=== PATIENT | female | born 1980 | race African-American/Black ===

== ENCOUNTER 2020-03-27 03:22 | Emergency (ER) | payer OTHER ==
[~2020-03-27] VITALS: Ht 160 cm; Wt 81.8 kg
[2020-03-27 03:45] VITALS: BP 144/92; TEMP 97.6
[2020-03-27] MEDS ORDERED: NORCO 325 MG-51 TAB PO (05:21)
[2020-03-27] MEDS ORDERED: FLEXERIL 1010 MG/TAB PO (05:21)
[2020-03-27 05:37] VITALS: PULSE 78
== END 2020-03-27 05:37 | disposition home or self-care (01) ==
LOC: COL.ER 03:22
DX: M54.12 Radiculopathy, cervical region (principal); M62.838 Other muscle spasm

== ENCOUNTER 2020-04-01 15:04 | Emergency (ER) | payer OTHER ==
[~2020-04-01] VITALS: Ht 157.5 cm; Wt 78.6 kg
[~2020-04-01 15:04] MED LIST: FLEXERIL 1010 MG/TAB PO; NORCO 325 MG-51 TAB PO
[2020-04-01 15:12] VITALS: TEMP 98
[2020-04-01 16:02] VITALS: BP 148/100; PULSE 96
== END 2020-04-01 16:04 | disposition home or self-care (01) ==
LOC: COL.ER 15:04
DX: M54.12 Radiculopathy, cervical region (principal)

== ENCOUNTER 2020-04-06 04:36 | Emergency (ER) | payer OTHER ==
[~2020-04-06] VITALS: Ht 157.5 cm; Wt 68.2 kg
[2020-04-06 04:38] VITALS: TEMP 98.5
[2020-04-06 05:13] LABS: BASO % 0.3 % (0.0-2.0); GRAN # 1.9 (1.4-6.5); GRAN % 61.4 % (42.2-75.2); HEMATOCRIT 37.1 % (37.0-47.0); HEMOGLOBIN 11.7 g/dl (12.5-16.0); LYMPH # 0.8 (1.2-3.4); LYMPH % 26.2 % (20.0-51.0); MEAN CELL VOLUME 75 fl (80.0-100.0); MEAN CORPUSCULAR HEMOGLOBIN 24 pg (27.0-31.0); MEAN CORPUSCULAR HGB CONC 32 g/dl (33.0-37.0); MEAN PLATELET VOLUME 10.9 fl (7.4-10.4); MONO # 0.3 (0.1-0.6); MONO % 11.1 % (1.7-9.3); PLATELET COUNT 302 K/mm3 (130-400); RED BLOOD COUNT 4.95 M/mm3 (4.10-5.30); REDCELL DISTRIBUTION WIDTH-CV 14.9 % (11.5-14.5)
[2020-04-06 05:25] LABS: ALANINE AMINOTRANSFERASE 16 U/L (4-34); ALBUMIN 4.5 gm/dL (3.5-5.0); ALKALINE PHOSPHATASE 51 U/L (50-136); ANION GAP 10 mmol/L (7-16); AST,SGOT 20 U/L (15-37); BILIRUBIN,TOTAL 0.3 mg/dL (0.0-1.0); BLOOD UREA NITROGEN 11 mg/dL (7-17); C-REACTIVE PROTEIN < 0.5 mg/dL (0.0-0.9); CALCIUM 9.2 mg/dL (8.4-10.2); CARBON DIOXIDE 24 mmol/L (22-30); CHLORIDE 103 mmol/L (98-107); CREATININE, serum 0.73 (0.52-1.25); GLUCOSE 112 mg/dL (74-106); POTASSIUM 3.9 mmol/L (3.4-5.0); SODIUM 136 mmol/L (137-145); TOTAL PROTEIN 7.7 gm/dL (6.4-8.2)
[2020-04-06 05:36] LABS: TROPONIN-I < 0.012 ng/mL (0.000-0.035)
[2020-04-06] MEDS ORDERED: PHENERGAN 25 TA25 MG PO (06:43)
[2020-04-06 07:30] VITALS: BP 141/83; PULSE 105
== END 2020-04-06 07:30 | disposition home or self-care (01) ==
LOC: COL.ER 04:36
PROVIDERS: Emergency Medicine
DX: R07.9 Chest pain, unspecified (principal); M54.2 Cervicalgia; R20.2 Paresthesia of skin; R53.1 Weakness; R11.0 Nausea
CPT/HCPCS: J0780; J7030; Q9967